=== PATIENT | male | born 1960 ===

== ENCOUNTER 2018-03-13 10:11 | Day surgery (SDC) | payer OTHER ==
[2018-03-11 14:27] VITALS: BMI 22.9
[~2018-03-13 10:11] MED LIST: LACTATED RINGERS 1,000 ML IV SCH
[2018-03-13 10:56] VITALS: RESP 16; TEMP 97
[2018-03-13] MEDS ORDERED: LIDOCAINE 1% 20 ML VIAL (10MG/ML) FOR IV START INTRADERMA ONE (10:56)
[2018-03-13] MEDS ORDERED: MIDAZOLAM 2 MG/2 ML VIAL ONE (11:55)
[2018-03-13] MEDS ORDERED: LIDOCAINE 1% INJ 10MG/ML (20 ML MDV) ONE (11:55)
[2018-03-13] MEDS ORDERED: fentaNYL (PF) 50 MCG/ML 2 ML AMP ONE (11:55)
[2018-03-13] MEDS ORDERED: PROPOFOL 10 MG/ML 20 ML VIAL IV ONE (11:55)
--- NOTE | 2018-03-13 12:22 | P.PCN ---
Date of Procedure: 03/13/18 Procedure(s) Performed: Procedure: Esophagogastroduodenoscopy and biopsy. Preoperative diagnosis: History of Scott's esophagus. Postoperative diagnosis: 1. Small sliding hiatal hernia but no obvious esophagitis, strictures or Scott's esophagus. 2. Mild antral gastritis. 3. Biopsies obtained from the duodenum, antrum and esophagus. Preparation and sedation: Was provided by anesthesia. Brief clinical history: The patient is a 57-year-old male with history of reflux who, apparently, was told he had Scott's esophagus at the time of his upper endoscopy around 4 years ago. The patient has taken omeprazole in the past for reflux and was doing well off medications for couple years or so until around 1 year ago when he started taking it again because of epigastric discomfort. He has no other alarm symptoms. His brother is currently getting treated for stage IV esophageal cancer. This evaluation is to assess for dysplasia or other pathology. Procedure: With the patient on his left lateral decubitus position and after informed consent and adequate sedation, the Olympus-GIF 160 video upper endoscope was used and was advanced under direct vision through the cricopharyngeus down the esophagus. GE junction was around 41 cm from the incisors and there was a small less than 1 cm sliding hiatal hernia but no obvious esophagitis or any strictures or Scott's esophagus. The endoscope was then passed into the stomach which was insufflated with air and inspected in detail including the retroflex view in the cardia. There was some mottling and erythema in the antrum but no ulcers or erosions. Pyloric channel, duodenal bulb, post bulbar area and descending duodenum appeared within normal limits. Because of his symptoms, I obtained biopsies from the duodenum, antrum and esophagus then the endoscope was withdrawn. The patient tolerated the procedure well. Plan: The patient was reassured. He will continue antireflux diet and measures and acid suppressive therapy. The possibility that he had no significant Scott's at the time of his prior exam or regression of a small segment of Scott's after that exam is to be kept in mind. I would consider repeating this examination at the time of his next colonoscopy. As you know, the patient had colonoscopy 2-3 years ago and had a polyp removed. He will discuss that with you.
[2018-03-13 12:35] VITALS: PULSE 54
[2018-03-13 13:28] VITALS: BP 107/62
== END 2018-03-13 13:29 | disposition home or self-care (01) ==
LOC: ORWHC2ENDO 10:11
DX: K29.70 Gastritis, unspecified, without bleeding (principal); K21.9 Gastro-esophageal reflux disease without esophagitis; K44.9 Diaphragmatic hernia without obstruction or gangrene; I10 Essential (primary) hypertension; Z87.891 Personal history of nicotine dependence; Z80.0 Family history of malignant neoplasm of digestive organs; Z79.899 Other long term (current) drug therapy
CPT/HCPCS: 88305; 43239; J2250; J2001; J3010; J2704